=== PATIENT | female | born 1995 | race Two or more races ===

== ENCOUNTER 2019-06-20 03:02 | Emergency (ER) | payer SELFPAY ==
[~2019-06-20] VITALS: Ht 162.6 cm; Wt 45.4 kg
--- NOTE | 2019-06-20 03:10 | NUR ---
Dr. Rodriguez at bedside for MSE
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
--- NOTE | 2019-06-20 03:15 | NUR ---
[facility] at bedside
--- NOTE | 2019-06-20 03:31 | NUR ---
Patient discharged to home in stable conditon. Written and verbal after care instructions given. Patient verbalizes understanding of instructions. Patient ambulating with steady gait
[2019-06-20 03:35] VITALS: BP 107/59
== END 2019-06-20 03:31 | disposition home or self-care (01) ==
LOC: ER 03:06
DX: F11.10 Opioid abuse, uncomplicated (principal); F41.9 Anxiety disorder, unspecified; F32.9 Major depressive disorder, single episode, unspecified; F12.10 Cannabis abuse, uncomplicated; F17.200 Nicotine dependence, unspecified, uncomplicated
CPT/HCPCS: A4663